=== PATIENT | male | born 1970 | race African-American/Black ===

== ENCOUNTER 2017-07-06 09:42 | Emergency (ER) | payer SELFPAY ==
[2017-07-06] MEDS ORDERED: ONDANSETRON HCL INJ/PF 4 MG/2 ML SDV IV ONE (09:56)
[2017-07-06] MEDS ORDERED: NORMAL SALINE 1000 ML 1,000 ML IV ONE (09:56)
[2017-07-06] MEDS ORDERED: MORPHINE SULFATE 10 MG/ML INJ IV ONE (09:57)
--- NOTE | 2017-07-06 09:58 | ER Document Report ---
ED Medical Screen (RME) - General Chief Complaint: Abdominal Pain Stated Complaint: STOMACH PAIN Time Seen by Provider: 07/06/17 09:56 Mode of Arrival: Ambulatory Information source: Patient Notes: pt reports severe rlq abd pain for 5 days. dec appetite. no Urinary sx's. nausea , no vomiting. no changes of stool. denies PMH. no prev surgeries. TRAVEL OUTSIDE OF THE [place] IN LAST 30 DAYS: No - Related Data Allergies/Adverse Reactions: No Known Allergies Allergy (Verified 07/06/17 09:52) Past Medical History - Social History Frequency of alcohol use: Social Drug Abuse: None - Past Medical History Cardiac Medical History: Reports: Hx Hypertension - not requiring therapy per patient Renal/ Medical History: Denies: Hx Peritoneal Dialysis Infectious Medical History: Denies: Hx MRSA - Immunizations Hx Diphtheria, Pertussis, Tetanus Vaccination: Yes - 07/2011 Physical Exam - Vital signs Vitals: Temp Pulse Resp BP Pulse Ox 98.7 F 76 18 147/105 H 100 07/06/17 09:50 07/06/17 09:50 07/06/17 09:50 07/06/17 09:50 07/06/17 09:50 Course - Vital Signs Vital signs: Temp Pulse Resp BP Pulse Ox 98.7 F 76 18 147/105 H 100 07/06/17 09:50 07/06/17 09:50 07/06/17 09:50 07/06/17 09:50 07/06/17 09:50
--- NOTE | 2017-07-06 10:11 | ER Document Report ---
ED GI/ - General Chief Complaint: Abdominal Pain Stated Complaint: STOMACH PAIN Time Seen by Provider: 07/06/17 09:56 Mode of Arrival: Ambulatory Information source: Patient TRAVEL OUTSIDE OF THE [place] IN LAST 30 DAYS: No - HPI Patient complains to provider of: Abdominal pain Onset: Last week Timing/Duration: Gradual, Persistent, Worse Quality of pain: Achy Severity at maximum: Moderate Severity in ED: Moderate Pain Level: 4 Location: RLQ Associated symptoms: Nausea Exacerbated by: Denies Relieved by: Denies Similar symptoms previously: Yes Recently seen / treated by doctor: No Notes: 07/06/17 10:09 Patient is a 46-year-old male presenting to the emergency room complaining of 6 day history of right-sided abdominal pain which is associated with nausea, denies any vomiting, no diarrhea, states he had to take a laxative on Thursday to have a bowel movement, has had one bowel movement since taking the laxative, denies any urinary symptoms, no fevers, states he has been having pain in this area for the past few years but it worsened over the past 6 days causing him to come to the emergency room to seek treatment, denies any sick contacts, no blood in his stools - Related Data Allergies/Adverse Reactions: No Known Allergies Allergy (Verified 07/06/17 09:52) Past Medical History - General Information source: Patient - Social History Smoking Status: Current Every Day Smoker Frequency of alcohol use: Social Drug Abuse: None Family History: Reviewed & Not Pertinent Patient has suicidal ideation: No Patient has homicidal ideation: No - Past Medical History Cardiac Medical History: Reports: Hx Hypertension - not requiring therapy per patient Renal/ Medical History: Denies: Hx Peritoneal Dialysis Infectious Medical History: Denies: Hx MRSA - Immunizations Hx Diphtheria, Pertussis, Tetanus Vaccination: Yes - 07/2011 Review of Systems - Review of Systems Constitutional: No symptoms reported EENT: No symptoms reported Cardiovascular: No symptoms reported Respiratory: No symptoms reported Gastrointestinal: Abdominal pain, Nausea Genitourinary: No symptoms reported Male Genitourinary: No symptoms reported Musculoskeletal: No symptoms reported Skin: No symptoms reported Hematologic/Lymphatic: No symptoms reported Neurological/Psychological: No symptoms reported -: Yes All other systems reviewed and negative Physical Exam - Vital signs Vitals: Temp Pulse Resp BP Pulse Ox 98.7 F 76 18 147/105 H 100 07/06/17 09:50 07/06/17 09:50 07/06/17 09:50 07/06/17 09:50 07/06/17 09:50 Interpretation: Normal - General General appearance: Appears well, Alert - HEENT Head: Normocephalic, Atraumatic Eyes: Normal Pupils: PERRL - Respiratory Respiratory status: No respiratory distress Chest status: Nontender Breath sounds: Normal Chest palpation: Normal - Cardiovascular Rhythm: Regular Heart sounds: Normal auscultation Murmur: No - Abdominal Inspection: Normal Distension: No distension Bowel sounds: Normal Tenderness: Tender - Right flank, no guarding, no rebound, no peritoneal signs Organomegaly: No organomegaly - Back Back: Normal, Nontender - Extremities General upper extremity: Normal inspection, Nontender, Normal color, Normal ROM , Normal temperature General lower extremity: Normal inspection, Nontender, Normal color, Normal ROM , Normal temperature, Normal weight bearing. No: Steph's sign - Neurological Neuro grossly intact: Yes Cognition: Normal Orientation: AAOx4 [place] Coma Scale Eye Opening: Spontaneous [place] Coma Scale Verbal: Oriented [place] Coma Scale Motor: Obeys Commands [place] Coma Scale Total: 15 Speech: Normal Motor strength normal: LUE, RUE, LLE, RLE Sensory: Normal - Psychological Associated symptoms: Normal affect, Normal mood - Skin Skin Temperature: Warm Skin Moisture: Dry Skin Color: Normal Course - Re-evaluation Re-evalutation: 07/06/17 12:04 Patient resting comfortably, reports relief of symptoms with medications given, lab and imaging findings discussed at bedside which are unremarkable, patient will be discharged with pain medication and instructions for follow-up, advised to return if symptoms worsen, patient acknowledges understanding with this plan - Vital Signs Vital signs: Temp Pulse Resp BP Pulse Ox 98.7 F 76 18 147/105 H 100 07/06/17 09:50 07/06/17 09:50 07/06/17 09:50 07/06/17 09:50 07/06/17 09:50 - Laboratory Result Diagrams: 07/06/17 10:35 07/06/17 10:35 Laboratory results interpreted by me: 07/06/17 07/06/17 07/06/17 10:35 10:35 10:35 RBC 6.09 H MCV 74 L MCH 23.8 L RDW 14.6 H Calcium 10.7 H AST 16 L ALT 17 L Urine Protein 30 H Urine Ketones 20 H Urine Blood MODERATE H Urine Urobilinogen 4.0 H - Diagnostic Test Radiology reviewed: Image reviewed, Reports reviewed Discharge - Discharge Clinical Impression: Abdominal pain Qualifiers: Abdominal location: right lower quadrant Qualified Code(s): R10.31 - Right lower quadrant pain Condition: Stable Disposition: HOME, SELF-CARE Instructions: Abdominal Pain ([facility]), Antinausea Medication ([facility]), Gastroenterology Additional Instructions: Follow up with your primary care provider and a fashion photographer in one to 2 days. Return to the emergency room immediately if symptoms worsen or any additional concerns. Prescriptions: Dicyclomine HCl [Bentyl 20 mg Tablet] 20 mg PO QID #60 tablet Docusate Sodium [Colace 100 mg Capsule] 100 mg PO BID #60 capsule Naproxen [Naprosyn 375 Mg Tablet] 375 mg PO BID #60 tablet
[2017-07-06 10:51] LABS: ABSOLUTE LYMPHOCYTES (AUTO) 1.7 10^3/uL (0.5-4.7); ABSOLUTE MONOCYTES (AUTO) 0.3 10^3/uL (0.1-1.4); ABSOLUTE NEUT (AUTO) 2.6 10^3/uL (1.7-8.2); BASOPHILS % (AUTO) 0.9 % (0-2); HEMOGLOBIN 14.5 g/dL (13.5-17.0); LYMPHOCYTES % (AUTO) 35.4 % (13-45); MEAN CORPUSCULAR HEMOGLOBIN 23.8 pg (27.0-33.4); MEAN CORPUSCULAR HGB CONC 32.1 g/dL (32.0-36.0); MEAN CORPUSCULAR VOLUME 74 fl (80-97); MONOCYTES % (AUTO) 7.2 % (3-13); PLATELET COUNT 270 10^3/uL (150-450); RED BLOOD COUNT 6.09 10^6/uL (4.35-5.55); RED CELL DISTRIBUTION WIDTH 14.6 % (11.5-14.0); SEGMENTED NEUTROPHILS % (AUTO) 55.5 % (42-78); TOTAL CELLS COUNTED % (AUTO) 100 %; WHITE BLOOD COUNT 4.7 10^3/uL (4.0-10.5)
[2017-07-06 11:08] LABS: APPEARANCE,URINE SLIGHTLY-CLOUDY; BILIRUBIN,URINE NEGATIVE (NEGATIVE); COLOR,URINE AMBER; GLUCOSE, URINE NEGATIVE (NEGATIVE); KETONES,URINE 20 mg/dL (NEGATIVE); LEUKOCYTE ESTERASE,URINE NEGATIVE (NEGATIVE); NITRITE,URINE NEGATIVE (NEGATIVE); PROTEIN,URINE 30 mg/dL (NEGATIVE); URINE SPECIFIC GRAVITY 1.029
[2017-07-06 11:17] LABS: ALANINE AMINOTRANSFERASE 17 U/L (21-72); ALBUMIN 4.4 g/dL (3.5-5.0); ALKALINE PHOSPHATASE 71 U/L (38-126); ANION GAP 10 (5-19); ASPARTATE AMINO TRANSFERASE 16 U/L (17-59); BILIRUBIN,DIRECT 0.4 mg/dL (0.0-0.4); BILIRUBIN,TOTAL 0.9 mg/dL (0.2-1.3); BLOOD UREA NITROGEN 12 mg/dL (7-20); CALCIUM 10.7 mg/dL (8.4-10.2); CARBON DIOXIDE 30 mmol/L (22-30); CHLORIDE 102 mmol/L (98-107); GLUCOSE 98 mg/dL (75-110); LIPASE 177.4 U/L (23-300); POTASSIUM 4.1 mmol/L (3.6-5.0); SODIUM 141.9 mmol/L (137-145); TOTAL PROTEIN 7.5 g/dL (6.3-8.2)
--- NOTE | 2017-07-06 11:48 | RADIOLOGY REPORT (SQ) ---
EXAM DESCRIPTION: CT LTD RENAL STONE PROTOCOL ON COMPLETED DATE/TIME: 07/06/2017 11:34 am REASON FOR STUDY: flank pain COMPARISON: CT abdomen pelvis 01/22/2016, 11/06/2010, 05/02/2010 TECHNIQUE: CT scan of the abdomen and pelvis performed without intravenous or oral contrast. Images reviewed with lung, soft tissue, and bone windows. Reconstructed coronal and sagittal MPR images revi ewed. All images stored on PACS. All CT scanners at this facility use dose modulation, iterative reconstruction, and/or weight based d osing when appropriate to reduce radiation dose to as low as reasonably achievable (ALARA). [facility]: Dose Right [facility]: CareDose [facility]: Dose Right [facility]: Teradose 4D [facility]: Dennoo RADIATION DOSE: CT Rad equipment meets quality standard of care and radiation dose reduction techniq ues were employed. CTDIvol: 5.2 mGy. DLP: 286 mGy-cm.mGy. LIMITATIONS: None. FINDINGS: LOWER CHEST: No significant findings. No nodules or infiltrates. NON-CONTRASTED LIVER, SPLEEN, ADRENALS: Evaluation limited by lack of IV contrast. No identified sign ificant masses. PANCREAS: No masses. No peripancreatic inflammatory changes. GALLBLADDER: No identified stones by CT criteria. No inflammatory changes to suggest cholecystitis. RIGHT KIDNEY AND URETER: No suspicious masses. Assessment limited by lack of IV contrast. No signif icant calcifications. No hydronephrosis or hydroureter. LEFT KIDNEY AND URETER: No suspicious masses. Assessment limited by lack of IV contrast. No signifi cant calcifications. No hydronephrosis or hydroureter. AORTA AND RETROPERITONEUM: No aneurysm. No retroperitoneal masses or adenopathy. BOWEL AND PERITONEAL CAVITY: No obvious masses or inflammatory changes. No free fluid. APPENDIX: Normal. PELVIS, BLADDER, AND ABDOMINAL WALL:No abnormal masses. No free fluid. Bladder normal. BONES: No significant findings. OTHER: No other significant finding. IMPRESSION: NO SIGNIFICANT OR ACUTE PROCESS IN THE ABDOMEN OR PELVIS. COMMENT: Quality ID # [id number]: Final reports with documentation of one or more dose reduction techniques (e.g., Automated exposure control, adjustment of the mA and/or kV according to patient size, use of iterative reconstruction technique) TECHNICAL DOCUMENTATION: JOB ID: [id number] [employer]- All Rights Reserved Reading location - IP/workstation name: [facility]CLUDES [email or web address]
[2017-07-06 12:27] VITALS: BP 166/108
== END 2017-07-06 12:28 | disposition home or self-care (01) ==
LOC: ER 09:42
DX: R10.31 Right lower quadrant pain (principal); R11.0 Nausea; I10 Essential (primary) hypertension; F17.200 Nicotine dependence, unspecified, uncomplicated
CPT/HCPCS: 99284; 96361; 96374; 96375; 36415; 83690; 85025; 80053; 81001; 76380; J2270; J2405; J7030

== ENCOUNTER 2017-07-10 23:16 | Emergency (ER) | payer SELFPAY ==
[2017-07-11] MEDS ORDERED: FAMOTIDINE 20 MG TABLET PO ONE (00:59)
[2017-07-11] MEDS ORDERED: MAG HYDROX/AL HYDROX/SIMETH SUSP 30 ML UDCUP PO ONE (00:59)
[2017-07-11] MEDS ORDERED: METOCLOPRAMIDE HCL ORAL SOLN 10 MG/10 ML UDCUP PO ONE (00:59)
[2017-07-11] MEDS ORDERED: LIDOCAINE 2% VISCOUS SOLN 20 ML UDCUP PO ONE (00:59)
--- NOTE | 2017-07-11 00:59 | ER Document Report ---
ED General - General Chief Complaint: Nose Bleed Stated Complaint: NOSE BLEED Time Seen by Provider: 07/11/17 00:18 Notes: Patient is a 46-year-old male without past medical history who presents with 2 distinct complaints. His first complaint is that he had intermittent bleeding from the left nostril throughout the day today. He states that prior to arrival he had a large amount of bleeding, held his head back and felt blood trickling down his throat. He then states he vomited up a coin-sized clot which prompted him to come to the emergency department. He has no history of bleeding diatheses, no prior history of nosebleeds, no use of anticoagulation. He states the bleeding did stop with direct pressure. He is uncertain of what prompted the bleeding the first place. He states that his secondary complaint is of several months of ongoing intermittent epigastric and right upper quadrant abdominal pain. He describes as a dull, throbbing, burning pain. Worsened by eating, drinking alcohol. He has not tried any to improve this pain although was seen in the emergency department several days ago and prescribed Bentyl and naproxen which she states has not all improved his symptoms. He has not seen his primary care doctor regarding these concerns. He denies any fever or constitutional symptoms. TRAVEL OUTSIDE OF THE [place] IN LAST 30 DAYS: No - Related Data Allergies/Adverse Reactions: No Known Allergies Allergy (Verified 07/06/17 09:52) Past Medical History - General Information source: Patient - Social History Smoking Status: Current Every Day Smoker Chew tobacco use (# tins/day): No Frequency of alcohol use: Occasional Drug Abuse: None Lives with: Spouse/Significant other Family History: Reviewed & Not Pertinent Patient has suicidal ideation: No Patient has homicidal ideation: No - Past Medical History Cardiac Medical History: Reports: Hx Hypertension - not requiring therapy per patient Renal/ Medical History: Denies: Hx Peritoneal Dialysis Infectious Medical History: Denies: Hx MRSA - Immunizations Hx Diphtheria, Pertussis, Tetanus Vaccination: Yes - 07/2011 Review of Systems - Review of Systems Notes: Constitutional: Negative for fever. HENT: Negative for sore throat. Eyes: Negative for visual changes. Cardiovascular: Negative for chest pain. Respiratory: Negative for shortness of breath. Gastrointestinal: Positive for abdominal pain and vomiting Genitourinary: Negative for dysuria. Musculoskeletal: Negative for back pain. Skin: Negative for rash. Neurological: Negative for headaches, weakness or numbness. 10 point ROS negative except as marked above and in HPI. Physical Exam - Vital signs Vitals: Temp Pulse Resp BP Pulse Ox 98.5 F 122 H 18 177/120 H 97 07/10/17 23:23 07/10/17 23:23 07/10/17 23:23 07/10/17 23:23 07/10/17 23:23 Interpretation: Hypertensive, Tachycardic Notes: PHYSICAL EXAMINATION: GENERAL: Well-appearing, well-nourished and in no acute distress. HEAD: Atraumatic, normocephalic. EYES: Pupils equal round and reactive to light, extraocular movements intact, sclera anicteric, conjunctiva are normal. ENT: nares patent, excoriations and areas of superficial abrasions to the middle portion of the left nasal septum, oropharynx clear without exudates. Moist mucous membranes. NECK: Normal range of motion, supple without lymphadenopathy LUNGS: Breath sounds clear to auscultation bilaterally and equal. No wheezes rales or rhonchi. HEART: Regular rate and rhythm without murmurs ABDOMEN: Soft, focal epigastric abdominal tenderness to palpation, no other localized areas of tenderness, normoactive bowel sounds. No guarding, no rebound. No masses appreciated. EXTREMITIES: Normal range of motion, no pitting or edema. No cyanosis. NEUROLOGICAL: No focal neurological deficits. Moves all extremities spontaneously and on command. PSYCH: Normal mood, normal affect. SKIN: Warm, Dry, normal turgor, no rashes or lesions noted. Course - Re-evaluation Re-evalutation: 07/11/17 00:59 Patient presents with epigastric abdominal pain with associated reflux symptoms most consistent with likely gastritis. Patient has no focal abdominal tenderness on examination. Right upper quadrant ultrasound does not demonstrate any evidence of acute cholecystitis or cholelithiasis. Lipase is normal. No LFT changes. Based on history and exam, I do not suspect ACS, pulmonary embolus, SBO, mesenteric ischemia, acute pancreatitis, biliary pathology, or an abdominal aortic dissection. Patient has had improvement of symptoms here with a GI cocktail. Patient did have a bleed from his left nostril earlier today. Nostril examination does show multiple areas of excoriations over the septum on the left side without any active bleeding. I have instructed the patient to begin moisturizing the area with Vaseline. Vitals and hemoglobin within acceptable limits. At this time will discharge with return precautions and follow-up recommendations. Verbal discharge instructions given a the bedside and opportunity for questions given. Medication warnings reviewed. Patient is in agreement with this plan and has verbalized understanding of return precautions and the need for primary care follow-up in the next 24-72 hours. - Vital Signs Vital signs: Temp Pulse Resp BP Pulse Ox 98.5 F 71 16 156/104 H 96 07/11/17 02:53 07/11/17 02:53 07/11/17 02:53 07/11/17 02:53 07/11/17 02:53 - Laboratory Result Diagrams: 07/11/17 01:15 07/11/17 01:15 Laboratory results interpreted by me: 07/11/17 07/11/17 01:15 01:15 Hgb 13.3 L MCV 74 L MCH 24.2 L RDW 14.4 H Calcium 10.6 H - Diagnostic Test Radiology reviewed: Reports reviewed Discharge - Discharge Clinical Impression: Upper abdominal pain, Nosebleed Gastritis Qualifiers: Gastritis type: unspecified gastritis Chronicity: acute Gastritis bleeding: presence of bleeding unspecified Qualified Code(s): K29.00 - Acute gastritis without bleeding Condition: Good Disposition: HOME, SELF-CARE Additional Instructions: Your symptoms appear to be most consistent with stomach or upper intestinal irritation. Please begin taking famotidine 40 mg in the morning and 40 mg at night. This medicine can be purchased directly [id number]. You may also take medicine such as Pepto-Bismol or Tums to assist with your pain. Please return to emergency department immediately if you have worsening of your pain, shortness of breath, vomiting, become unable to exert yourself due to pain or difficulty breathing, you pass out, or have any pain that radiates into your arms, jaw, or back. Please also return if you have any additional symptoms that are concerning to you. As we have discussed, the most important thing is lifestyle changes. You need to avoid smoking, sodas, tea, coffee, alcohol, spicy foods, and acidic foods such as citrus fruits, tomato based products, berries, and most fruit juices. You were seen today for a nosebleed. If this restarts please apply direct pressure to the area for 15 minutes without releasing pressure. You can use 4- 5 sprays the Afrin (oxymetazoline) spray that was given to you here in the emergency room into the affected side prior to applying the pressure. You need to apply vasaline or a similar product along the inside of the side of the nose that is bleeding twice daily to help heal the inside of your nose. Please return to emergency department if these measures do not control the bleeding. Please also return if you pass out, have significant pain of the nose or face, or any other symptoms that are concerning to you. Your primary care doctor regarding today's visit.it. Prescriptions: Famotidine 40 mg PO BID #60 tablet Sucralfate [Carafate 1 gm Tablet] 1 gm PO ACHS #120 tablet
[2017-07-11 01:32] LABS: ABSOLUTE BASOPHILS # (AUTO) 0.1 10^3/uL (0.0-0.2); ABSOLUTE LYMPHOCYTES (AUTO) 2.1 10^3/uL (0.5-4.7); ABSOLUTE MONOCYTES (AUTO) 0.4 10^3/uL (0.1-1.4); ABSOLUTE NEUT (AUTO) 3.9 10^3/uL (1.7-8.2); BASOPHILS % (AUTO) 1.1 % (0-2); EOSINOPHILS % (AUTO) 0.7 % (0-6); HEMATOCRIT 40.4 % (37.9-51.0); HEMOGLOBIN 13.3 g/dL (13.5-17.0); LYMPHOCYTES % (AUTO) 32.4 % (13-45); MEAN CORPUSCULAR HEMOGLOBIN 24.2 pg (27.0-33.4); MEAN CORPUSCULAR HGB CONC 32.9 g/dL (32.0-36.0); MEAN CORPUSCULAR VOLUME 74 fl (80-97); MONOCYTES % (AUTO) 6.7 % (3-13); PLATELET COUNT 253 10^3/uL (150-450); RED BLOOD COUNT 5.49 10^6/uL (4.35-5.55); RED CELL DISTRIBUTION WIDTH 14.4 % (11.5-14.0); SEGMENTED NEUTROPHILS % (AUTO) 59.1 % (42-78); TOTAL CELLS COUNTED % (AUTO) 100 %; WHITE BLOOD COUNT 6.6 10^3/uL (4.0-10.5)
[2017-07-11 01:41] LABS: ALANINE AMINOTRANSFERASE 26 U/L (21-72); ALBUMIN 4.5 g/dL (3.5-5.0); ALKALINE PHOSPHATASE 60 U/L (38-126); ANION GAP 12 (5-19); ASPARTATE AMINO TRANSFERASE 22 U/L (17-59); BILIRUBIN,DIRECT 0.3 mg/dL (0.0-0.4); BILIRUBIN,TOTAL 0.6 mg/dL (0.2-1.3); BLOOD UREA NITROGEN 13 mg/dL (7-20); CALCIUM 10.6 mg/dL (8.4-10.2); CARBON DIOXIDE 29 mmol/L (22-30); CHLORIDE 104 mmol/L (98-107); GLUCOSE 103 mg/dL (75-110); LIPASE 109.7 U/L (23-300); POTASSIUM 4.6 mmol/L (3.6-5.0); SODIUM 144.7 mmol/L (137-145); TOTAL PROTEIN 7.4 g/dL (6.3-8.2)
--- NOTE | 2017-07-11 02:31 | RADIOLOGY REPORT (SQ) ---
EXAM DESCRIPTION: U/S ABDOMEN LIMITED W/O DOP CLINICAL HISTORY: 46 years, Male, epigastric abdominal pain COMPARISON: CT, 07/06/2017 LIMITATIONS: None. FINDINGS: Gallbladder, negative sonographic Vences's test, liver, aorta, hepatobiliary ductal system, 0.3 cm diameter common bile duct, 10 cm right kidney, and obscured pancreas appear otherwise unremarkable. No ascites. IMPRESSION: No acute findings. Obscured pancreas.
[2017-07-11] MEDS ORDERED: OXYMETAZOLINE HCL 0.05% NASAL SPRAY 15 ML BOTTLE NASL ONE (02:39)
[2017-07-11 02:57] VITALS: BP 156/104
== END 2017-07-11 02:53 | disposition home or self-care (01) ==
LOC: ER 23:16
DX: K29.00 Acute gastritis without bleeding (principal); R04.0 Epistaxis; R10.11 Right upper quadrant pain; R11.10 Vomiting, unspecified; R10.13 Epigastric pain; F17.200 Nicotine dependence, unspecified, uncomplicated; I10 Essential (primary) hypertension
CPT/HCPCS: 99284; 36415; 83690; 85025; 80053; 76705; J3490 ×2

== ENCOUNTER 2017-12-02 08:51 | Emergency (ER) | payer OTHER ==
[2017-12-02 08:58] VITALS: BP 150/108
[2017-12-02] MEDS ORDERED: IBUPROFEN 800 MG TABLET PO ONE (09:37)
--- NOTE | 2017-12-02 09:41 | ER Document Report ---
ED Extremity Problem, Lower - General Chief Complaint: Toe Injury Stated Complaint: TOE PAIN Time Seen by Provider: 12/02/17 09:21 Mode of Arrival: Ambulatory Information source: Patient Notes: 87-year-old male presents to ED for complaint of pain to the right great toe. He states that he kicked a chair while trying to kick in and will out of the way. He states he injured his big toe when out is very painful to walk. He is alert and oriented respirations regular and unlabored the right great toe is bruised. He is able to walk. TRAVEL OUTSIDE OF THE [place] IN LAST 30 DAYS: No - HPI Patient complains to provider of: Injury, Pain, Swelling Location: Great Toe Occurred: This morning Where: Home, Indoors Onset/Duration: Sudden Quality of pain: Achy, Throbbing Severity: Severe Pain Level: 5 Context: Other - Kicked a chair Recent injury: Yes Associated symptoms: Painful ambulation Exacerbated by: Hanging down, Movement, Walking Relieved by: Elevation, Ice, Rest - Related Data Allergies/Adverse Reactions: No Known Allergies Allergy (Verified 12/02/17 08:54) Past Medical History - General Information source: Patient - Social History Smoking Status: Current Every Day Smoker Cigarette use (# per day): Yes - 2 Chew tobacco use (# tins/day): No Smoking Education Provided: Yes - 4 minutes Frequency of alcohol use: Heavy - Times a week Drug Abuse: None Occupation: [employer] Lives with: Alone Family History: Reviewed & Not Pertinent Patient has suicidal ideation: No Patient has homicidal ideation: No - Past Medical History Cardiac Medical History: Reports: Hx Hypertension - not requiring therapy per patient Pulmonary Medical History: Reports: None EENT Medical History: Reports: None Neurological Medical History: Reports: None Endocrine Medical History: Reports: None Renal/ Medical History: Reports: None Malignancy Medical History: Reports None GI Medical History: Reports: None Musculoskeletal Medical History: Reports None Skin Medical History: Reports None Psychiatric Medical History: Reports: None Traumatic Medical History: Reports: None Infectious Medical History: Reports: None Surgical Hx: Negative Past Surgical History: Reports: None - Immunizations Hx Diphtheria, Pertussis, Tetanus Vaccination: Yes - 07/2011 Review of Systems - Review of Systems Constitutional: No symptoms reported EENT: No symptoms reported Cardiovascular: No symptoms reported Respiratory: No symptoms reported Gastrointestinal: No symptoms reported Genitourinary: No symptoms reported Male Genitourinary: No symptoms reported Musculoskeletal: Other - Pain bruising swelling right great toe Skin: No symptoms reported Hematologic/Lymphatic: No symptoms reported Neurological/Psychological: No symptoms reported Physical Exam - Vital signs Vitals: Temp Pulse Resp BP Pulse Ox 98.1 F 101 H 14 150/108 H 96 12/02/17 08:57 12/02/17 08:57 12/02/17 08:57 12/02/17 08:57 12/02/17 08:57 Interpretation: Normal - General General appearance: Appears well, Alert - HEENT Head: Normocephalic, Atraumatic Eyes: Normal Pupils: PERRL - Respiratory Respiratory status: No respiratory distress Chest status: Nontender Breath sounds: Normal Chest palpation: Normal - Cardiovascular Rhythm: Regular Heart sounds: Normal auscultation Murmur: No - Abdominal Inspection: Normal Distension: No distension Bowel sounds: Normal Tenderness: Nontender Organomegaly: No organomegaly - Back Back: Normal, Nontender - Extremities General upper extremity: Normal inspection, Nontender, Normal color, Normal ROM , Normal temperature General lower extremity: Normal ROM, Normal temperature, Normal weight bearing. No: Steph's sign Foot: Tender - right great toe, Ecchymosis, Edema - Great toe, No evidence of FB. No: Abrasion, Deformity, Laceration, Metatarsal compress. pain, Nail injury , Navicular tenderness, Puncture wound, Tender 5th metatarsal - right great toe , Unable to bear weight - Neurological Neuro grossly intact: Yes Cognition: Normal Orientation: AAOx4 [place] Coma Scale Eye Opening: Spontaneous [place] Coma Scale Verbal: Oriented [place] Coma Scale Motor: Obeys Commands [place] Coma Scale Total: 15 Speech: Normal Motor strength normal: LUE, RUE, LLE, RLE Sensory: Normal - Psychological Associated symptoms: Normal affect, Normal mood - Skin Skin Temperature: Warm Skin Moisture: Dry Skin Color: Normal Course - Re-evaluation Re-evalutation: 12/02/17 10:21 Chest x-ray with patient the toe is not broken. Have contacted Ozzy White to talk with him about getting help for his elevated blood pressure. She stated she will come over and talk to him. I will discharge him home after she has talked with him. - Vital Signs Vital signs: Temp Pulse Resp BP Pulse Ox 98.1 F 101 H 14 150/108 H 96 12/02/17 08:57 12/02/17 08:57 12/02/17 08:57 12/02/17 08:57 12/02/17 08:57 - Diagnostic Test Radiology reviewed: Image reviewed, Reports reviewed Discharge - Discharge Clinical Impression: Contusion of right great toe without damage to nail Qualifiers: Encounter type: initial encounter Qualified Code(s): S90.111A - Contusion of right great toe without damage to nail, initial encounter Condition: Stable Disposition: HOME, SELF-CARE Instructions: Family Physicians / Practices Additional Instructions: CONTUSION: Your injury has resulted in a contusion -- a crushing of the deep tissues. No injury to important structures was detected during the physician's exam. Contusions vary in the amount of pain they cause, and in the length of time required for healing. Typically, the area will become bruised, and will remain painful to touch for two or three weeks. However, most patients are back to working and playing within a few days. After the initial period of rest and cold-packs, your symptoms (together with the doctor's recommendations) will determine how rapidly you can get back to full activity. Usually this means "do what feels okay, but don't do things that hurt." If re-examination was recommended, it's important to follow up as instructed. Call the doctor or return any time if pain increases, if swelling becomes severe, if you develop numbness or weakness in an injured extremity, or if any other alarming symptoms occur. USE OF TYLENOL (ACETAMINOPHEN): Acetaminophen may be taken for pain relief or fever control. It's much safer than aspirin, offering a wider range of "safe" dosages. It is safe during . Some brand names are Tylenol, Panadol, Datril, Anacin 3, Tempra, and Liquiprin. Acetaminophen can be repeated every four hours. The following are maximum recommended dosages: WEIGHT Dose Drops Elixir Chewable( 80mg) (LBS.) drprs=droppers tsp=teaspoon 6 40 mg 0.4 ml (1/2) 6-11 80 mg 0.8 ml (full) tsp 1 tab 12-16 120 mg 1 1/2 drprs 3/4 tsp 1 1/2 tabs 17-23 160 mg 2 drprs 1 tsp 2 tabs 24-30 240 mg 3 drprs 1 1/2 tsp 3 tabs 30-35 320 mg 2 tsp 4 tabs 36-41 360 mg 2 1/4 tsp 4 1/2 tabs 42-47 400 mg 2 1/2 tsp 5 tabs 48-53 480 mg 3 tsp 6 tabs 54-59 520 mg 3 1/4 tsp 6 1/2 tabs 60-64 560 mg 3 1/2 tsp 7 tabs 65-70 600 mg 3 3/4 tsp 7 1/2 tabs 71-76 640 mg 4 tsp 8 tabs 77-82 720 mg 4 1/2 tsp 9 tabs 83-88 800 mg 5 tsp 10 tabs >89 pounds or adults 650 mg to 900 mg Acetaminophen can be repeated every four hours. Maximum dose not to exceed 4000 mg a day. These maximum recommended dosages are slightly higher than the dosages written on the product container, but these dosages are very safe and below the toxic dosage for acetaminophen. ICE & ELEVATION: Apply ice packs frequently against the painful area. Many different schedules are recommended, such as "20 minutes on, 20 minutes off" or "one hour ice, two hours rest." If you need to work, you may need to go longer between ice treatments. You should plan to have the area ice packed AT LEAST one- fourth of the time. The ice should be applied over the wrap, tape, or splint, or over a layer of cloth -- not directly against the skin. Some ice bags have a built-in cloth and can be put directly on the skin. Your injured part should be elevated as much as possible over the next 48 hours. Try to keep the injury above the level of the heart. Avoid use of the injured area. Elevation and rest will decrease the swelling. USE OF VXIF-NDO-GBILLXH IBUPROFEN: Ibuprofen (Advil, Nuprin, Medipren, Motrin IB) is a medication for fever and pain control. In addition, it has anti- inflammatory effects which may be beneficial, especially in the treatment of injuries. It's best to take ibuprofen with food. Persons with ulcer disease or allergy to aspirin should notify their physician of this before taking ibuprofen. Ibuprofen can be given every four to six hours, for a total of four doses daily. Age Pain or fever dose Antiinflammatory dose 6-8 yr 200 mg (1 tab) 200 mg (1 tab) 9-11 yr 200 mg (1 tab) 200-400 mg (1-2 tab) 11-14 yr 200-400 mg (1-2 tab) 400 mg (2 tab) 15-adult 400 mg (2 tab) 600 mg (3 tab) FOLLOW-UP CARE: If you have been referred to a physician for follow-up care, call the physician s office for an appointment as you were instructed or within the next two days. If you experience worsening or a significant change in your symptoms, notify the physician immediately or return to the Emergency Department at any time for re-evaluation. Forms: Elevated Blood Pressure, Smoking Cessation Education Referrals: [facility] [Provider Group] - Follow up as needed
--- NOTE | 2017-12-02 10:00 | RADIOLOGY REPORT (SQ) ---
EXAM DESCRIPTION: FOOT RIGHT COMPLETE COMPLETED DATE/TIME: 12/02/2017 9:51 am REASON FOR STUDY: kicked chair worse pain right great toe COMPARISON: None. NUMBER OF VIEWS: Three views. TECHNIQUE: AP, lateral and oblique radiographic images acquired of the right foot. LIMITATIONS: None. FINDINGS: MINERALIZATION: Normal. BONES: No acute fracture or dislocation. No worrisome bone lesions. JOINTS: No effusions. SOFT TISSUES: No soft tissue swelling. No foreign body. OTHER: No other significant finding. IMPRESSION: NEGATIVE STUDY OF THE RIGHT FOOT. NO RADIOGRAPHIC EVIDENCE OF ACUTE INJURY. TECHNICAL DOCUMENTATION: JOB ID: [id number] [employer]- All Rights Reserved Reading location - IP/workstation name: [email or web address]
== END 2017-12-02 10:59 | disposition home or self-care (01) ==
LOC: ER 08:51
DX: S90.111A Contusion of right great toe without damage to nail, initial encounter (principal); W22.03XA Walked into furniture, initial encounter; Y93.89 Activity, other specified; Y92.009 Unspecified place in unspecified non-institutional (private) residence as the place of occurrence of the external cause; I10 Essential (primary) hypertension; F17.210 Nicotine dependence, cigarettes, uncomplicated; Z71.6 Tobacco abuse counseling
CPT/HCPCS: 99283; 99406

== ENCOUNTER 2018-02-14 15:29 | Emergency (ER) | payer OTHER ==
[2018-02-14 16:01] VITALS: BP 144/85
--- NOTE | 2018-02-14 16:28 | ER Document Report ---
ED Hand/Wrist Injury - General Chief Complaint: Hand Injury Stated Complaint: FALL/FINGER INJURY Time Seen by Provider: 02/14/18 16:17 Mode of Arrival: Ambulatory Information source: Patient Notes: Patient is a 47-year-old male comes emergency room complaint right hand pain but more specifically right ring finger pain. Patient states that 1 of his dogs which is a pit bull has a pop this about 3 months old and patient was walking towards the kitchen and stumbled over the 3-month-old and as he fell forward and he smacked his right ring finger into the table like in a fist kind of a injury. Almost like striking it with that finger. This occurred about 10 AM this morning and is been getting more sore throughout the day and he is not able to bend it all the way. He also has a hard time straightening the finger 100% 2. Denies any other medical problems. TRAVEL OUTSIDE OF THE [place] IN LAST 30 DAYS: No - HPI Injury to: Ring finger Onset: This morning Where: Home Timing: Constant, Worse Quality of pain: Fullness, Sharp, Stabbing, Throbbing Severity: Moderate Pain Level: 3 Context: Blow, Swelling - Related Data Allergies/Adverse Reactions: No Known Allergies Allergy (Verified 12/02/17 08:54) Past Medical History - General Information source: Patient - Social History Smoking Status: Current Every Day Smoker Cigarette use (# per day): Yes - 2 cigarettes/day Chew tobacco use (# tins/day): No Smoking Education Provided: Yes Frequency of alcohol use: None Drug Abuse: None Family History: Reviewed & Not Pertinent - Past Medical History Cardiac Medical History: Reports: Hx Hypertension - not requiring therapy per patient Renal/ Medical History: Denies: Hx Peritoneal Dialysis - Immunizations Hx Diphtheria, Pertussis, Tetanus Vaccination: Yes - 07/2011 Review of Systems - Review of Systems Constitutional: No symptoms reported EENT: No symptoms reported Cardiovascular: No symptoms reported Respiratory: No symptoms reported Gastrointestinal: No symptoms reported Genitourinary: No symptoms reported Male Genitourinary: No symptoms reported Musculoskeletal: See HPI, Joint pain, Joint swelling Skin: No symptoms reported Hematologic/Lymphatic: No symptoms reported Neurological/Psychological: No symptoms reported -: Yes All other systems reviewed and negative Physical Exam - Vital signs Vitals: Temp Pulse Resp BP Pulse Ox 98.6 F 80 16 144/85 H 98 02/14/18 15:47 02/14/18 15:47 02/14/18 15:47 02/14/18 15:47 02/14/18 15:47 Interpretation: Hypertensive - Notes Notes: PHYSICAL EXAMINATION: GENERAL: This is a well-nourished well-developed 47-year-old male who is in no apparent distress on physical examination. He does appear somewhat uncomfortable and holds his hand into his body as we talk. HEAD: Atraumatic, normocephalic. EYES: Pupils equal round and reactive to light, extraocular movements intact, sclera anicteric, conjunctiva are normal. ENT: Nares patent, oropharynx clear without exudates. Moist mucous membranes. NECK: Normal range of motion, supple without lymphadenopathy LUNGS: Breath sounds clear to auscultation bilaterally and equal. No wheezes rales or rhonchi. HEART: Regular rate and rhythm without murmur Musculoskeletal: Area of concern is patient's right ring finger. Patient has pain and discomfort at the base of the finger. From there it extends somewhat into the first knuckle area. Patient is unable to do full flexion of the finger but can extend it fairly good. He has good cap refill in the nailbed of the right ring finger and has good strength against resistance in the extension but not flexion. He also has good lateral movement against resistance as well. NEUROLOGICAL: Normal speech, normal gait. Normal sensory, motor exams PSYCH: Normal mood, normal affect. SKIN: Warm, Dry, normal turgor, no rashes or lesions noted. Course - Re-evaluation Re-evalutation: 02/14/18 17:28 Patient was found to have a nondisplaced fracture of the right fourth digit at the proximal end of the fourth proximal phalanx - Vital Signs Vital signs: Temp Pulse Resp BP Pulse Ox 98.6 F 80 16 144/85 H 98 02/14/18 15:47 02/14/18 15:47 02/14/18 15:47 02/14/18 15:47 02/14/18 15:47 Procedures - Immobilization Right Finger 4th digit Time completed: 17:25 Pre-Proc Neuro Vasc Exam: Normal Immobilizer type: Finger protection, Finger splint (Static) Performed by: PCT Post-Proc Neuro Vasc Exam: Normal, Unchanged from pre-exam Alignment checked and good: Yes Notes: 02/14/18 17:25 Finger splint was applied by the PCT it was checked by me because I had requested to be in anatomical curvature. She used an aluminum finger splint and made a anatomical curve with it and pull it around to get the finger protection. She did an excellent job of performing the anatomical curve and we placed him in a sling for support. Patient was checked by me after application found to have good cap refill in the nailbeds of all the fingers of the right hand. Discharge - Discharge Clinical Impression: Phalanx, proximal fracture of finger Qualifiers: Encounter type: initial encounter Finger: ring finger Fracture type: closed Fracture alignment: nondisplaced Laterality: right Qualified Code(s): S62.644A - Nondisplaced fracture of proximal phalanx of right ring finger, initial encounter for closed fracture Instructions: Fractured Finger ([facility]) Additional Instructions: Leave the splint on until you follow-up with orthopedic doctor. This is 1 of those fractures that can be fixed with either surgically or left to heal over time it just depends on what the orthopedic thinks. I am writing you for some pain medications I will give you the name of the orthopedist ammonia refrigeration technician you may contact his office to see if he can accommodate you. Ice 3 times a day. Continue to take ibuprofen 800 mg 3 times a day with food. Should you have any concerns or problems return to ER for recheck. Prescriptions: Hydrocodone/Acetaminophen [Delta 7.5-325 mg Tablet] 1 tab PO Q6 PRN #12 tablet PRN Reason: Forms: Elevated Blood Pressure Referrals: RUFINO CASTILLO MD [ACTIVE STAFF] - Follow up as needed
--- NOTE | 2018-02-14 17:04 | RADIOLOGY REPORT (SQ) ---
EXAM DESCRIPTION: HAND RIGHT 3 VIEWS COMPLETED DATE/TIME: 02/14/2018 4:54 pm REASON FOR STUDY: Tripped over a dog and hurt R hand/fingers COMPARISON: None. EXAM PARAMETERS: NUMBER OF VIEWS: Three views. TECHNIQUE: AP, lateral and oblique radiographic images acquired of the right hand. LIMITATIONS: None. FINDINGS: MINERALIZATION: Normal. BONES: Transverse nondisplaced fracture of the proximal phalanx of the 4th digit. JOINTS: No effusions. SOFT TISSUES: No soft tissue swelling. No foreign body. OTHER: No other significant finding. IMPRESSION: Transverse nondisplaced fracture proximal phalanx 4th digit. TECHNICAL DOCUMENTATION: JOB ID: [id number] [employer]- All Rights Reserved Reading location - IP/workstation name: [email or web address]
[2018-02-14] MEDS ORDERED: HYDROCODONE/ACETAMINOPHEN 5-325 MG TABLET PO ONE (17:09)
== END 2018-02-14 17:42 | disposition home or self-care (01) ==
LOC: ER 15:29
DX: S62.644A Nondisplaced fracture of proximal phalanx of right ring finger, initial encounter for closed fracture (principal); W01.190A Fall on same level from slipping, tripping and stumbling with subsequent striking against furniture, initial encounter; Y92.009 Unspecified place in unspecified non-institutional (private) residence as the place of occurrence of the external cause; F17.210 Nicotine dependence, cigarettes, uncomplicated; I10 Essential (primary) hypertension
CPT/HCPCS: 99284

== ENCOUNTER 2019-02-27 09:34 | Emergency (ER) | payer OTHER ==
[2019-02-27] MEDS ORDERED: HYDROCODONE/ACETAMINOPHEN 5-325 MG TABLET PO ONE ×2 (10:11→15:52)
--- NOTE | 2019-02-27 10:13 | ER Document Report ---
HPI - HPI Patient complains to provider of: Left hand injury Time Seen by Provider: 02/27/19 10:11 Onset: Yesterday Onset/Duration: Gradual Quality of pain: Sharp Pain Level: 3 Context: Patient states he was playing football yesterday and got tackled injuring his left hand. Patient states initially he did not have significant pain or swelling but then woke up today with the hand significantly swollen and painful. Patient is right-hand dominant. Patient states yesterday he was able to move the hand well after the initial injury but this morning he cannot move it as well due to the tenderness. Associated Symptoms: Other - Left hand injury. denies: Vomiting Exacerbated by: Movement Relieved by: Denies Similar symptoms previously: No Recently seen / treated by doctor: No - ROS ROS below otherwise negative: Yes Systems Reviewed and Negative: Yes All other systems reviewed and negative - NEURO Neurology: DENIES: Weakness - GASTROINTESTINAL Gastrointestinal: DENIES: Nausea - REPRODUCTIVE Reproductive: DENIES: : - MUSCULOSKELETAL Musculoskeletal: REPORTS: Extremity pain, Swelling - DERM Skin Color: Normal Skin Problems: None Past Medical History - General Information source: Patient - Social History Smoking Status: Current Every Day Smoker Chew tobacco use (# tins/day): No Frequency of alcohol use: None Drug Abuse: None Occupation: [employer] Family History: Reviewed & Not Pertinent Patient has suicidal ideation: No Patient has homicidal ideation: No - Medical History Medical History: Negative Renal/ Medical History: Denies: Hx Peritoneal Dialysis Surgical Hx: Negative - Immunizations Hx Diphtheria, Pertussis, Tetanus Vaccination: Yes - 07/2011 Vertical Provider Document - CONSTITUTIONAL Agree With Documented VS: Yes Exam Limitations: No Limitations General Appearance: WD/WN, No Apparent Distress - INFECTION CONTROL TRAVEL OUTSIDE OF THE [place] IN LAST 30 DAYS: No - HEENT HEENT: Atraumatic, Normocephalic - NECK Neck: Normal Inspection - RESPIRATORY Respiratory: No Respiratory Distress - CARDIOVASCULAR Pulses: Normal: Radial - MUSCULOSKELETAL/EXTREMETIES Musculoskeletal/Extremeties: Tender - Left hand tenderness to the first second and third metacarpals with 3+ edema, left wrist tenderness over distal radius, Edema. negative: Eccymosis - NEURO Level of Consciousness: Awake, Alert, Appropriate Motor/Sensory: No Sensory Deficit - DERM Integumentary: Warm, Dry, No Rash Course - Re-evaluation Re-evalutation: 02/27/19 10:55 call placed to presetter operator for consultation with Dr Patterson, message left. 02/27/19 11:45 Dr Patterson has yet to return message, call placed presetter operator again. 02/27/19 11:[address] Patterson who states that he will be here at the hospital in 30 minutes to evaluate patient. Recommends having lidocaine to the bedside with a 22-gauge needle in case he needs to perform a bedside reduction. 02/27/19 13:30 Dr. Patterson to room to evaluate patient, Nevaeh splint removed per Dr. Patterson. 02/27/19 13:46 Dr. Patterson states that he will reduce fracture and place patient in a splint. Recommends having patient return to his office in 7 to 10 days with a repeat x- ray for follow-up. 02/27/19 15:00 Dr. Patterson feels that patient will require the hand surgeon. Dr. Patterson states that he will attempt to see if 1 of his partners or if Dr. Fernandez will be able to perform the surgery. Dr. Patterson recommends having patient go through the necessary channels to get established in the hospital ijeoma care program or to seek out other insurance. Dr. Patterson states that he did mention to the patient that if he cannot get a hand specialist to perform the surgery and that if g[facility] pace is not able to see any other provider on outpatient basis that he may consider doing the surgery himself. Dr. Patterson advises having patient follow-up with him as soon as he has gotten into the ijeoma care program. Dr. Patterson would like a CT performed in anticipation of his outpatient follow-up. Dr. Patterson does not require the results be called to him. 02/27/19 15:30 Discussed with patient the plan of care. Patient given numbers for the director financial services as well as the landscape architect and planner. A consult was placed for the emergency room landscape architect and planner as well. Patient encouraged to follow-up with the landscape architect and planner tomorrow. Patient also advised that if he is unable to get any type of ijeoma care or additional insurance that he should follow-up with Dr. Patterson within the week to discuss other treatment options at that time. 02/27/19 15:55 - Vital Signs Vital signs: Temp Pulse Resp BP Pulse Ox 98 F 90 18 137/95 H 97 02/27/19 09:42 02/27/19 09:42 02/27/19 09:42 02/27/19 09:42 02/27/19 09:42 - Diagnostic Test Radiology reviewed: Image reviewed, Reports reviewed Procedures - Immobilization Left Hand Pre-Proc Neuro Vasc Exam: Normal Immobilizer type: Other - Nevaeh Performed by: PCT Post-Proc Neuro Vasc Exam: Normal Alignment checked and good: Yes Discharge - Discharge Clinical Impression: Hand fracture, left Qualifiers: Encounter type: initial encounter Fracture type: closed Qualified Code(s): S62.92XA - Unspecified fracture of left wrist and hand, initial encounter for closed fracture Condition: Stable Disposition: HOME, SELF-CARE Instructions: Fractured Metacarpal ([facility]), Ice & Elevation ([facility]), Splint Precautions ([facility]) Additional Instructions: Return immediately for any new or worsening symptoms Followup with your primary care provider, call tomorrow to make a followup appointment Follow-up with Dr. Patterson as instructed Apply for the ijeomaBuyanihan card, you will need to speak with the patient access service representative on Thursday Prescriptions: Naproxen [Naprosyn 250 Nmg Tablet] 1 tab PO BID #14 tablet Hydrocodone/Acetaminophen [Maynard 5-325 mg Tablet] 1 tab PO Q6 PRN #15 tablet PRN Reason: Referrals: ANDRES PATTERSON JR, DO [ACTIVE PROVISIONAL STAFF] - Follow up in 1 week
--- NOTE | 2019-02-27 10:38 | RADIOLOGY REPORT (SQ) ---
EXAM DESCRIPTION: HAND LEFT 3 VIEWS COMPLETED DATE/TIME: 02/27/2019 10:26 am REASON FOR STUDY: football inj, L hand/wrist pain, 1-3 [facility] COMPARISON: None. EXAM PARAMETERS: NUMBER OF VIEWS: Three views. TECHNIQUE: AP, lateral and oblique radiographic images acquired of the left hand. LIMITATIONS: None. FINDINGS: MINERALIZATION: Normal. BONES: Fracture of the distal 2nd metacarpal with volar angulation. No worrisome bone lesions. JOINTS: Degenerative changes in the PIP joint of the 5th finger. SOFT TISSUES: No soft tissue swelling. No foreign body. OTHER: No other significant finding. IMPRESSION: FRACTURE OF THE DISTAL 2ND METACARPAL WITH VOLAR ANGULATION. TECHNICAL DOCUMENTATION: JOB ID: [id number] [employer]- All Rights Reserved Reading location - IP/workstation name: [email or web address]
[2019-02-27] MEDS ORDERED: LIDOCAINE 1% INJ-PF (10 MG/ML) 30 ML SDV INJ ONE (11:56)
--- NOTE | 2019-02-27 14:07 | PDOC CONSULTATION ---
Consultation Consult Date: 02/27/19 Provider Consulted: ANDRES PATTERSON JR History of Present Illness History of Present Illness: JORDY MORENO is a 48 year old male who fell playing football yesterday and sustained left hand pain. This got worse overnight and due to the severe amount of swelling and inability to use his hand he was concerned and presented to the emergency department. He describes the pain as a aching and burning 10 out of 10 at worse 8 out of 10 at baseline. It is improved with pain medication elevation and immobility, worsened with any sort of motion as well as palpation. He denies associated injury. He denies loss of motor or sensory function to th e finger. Past Medical History Medical History: None Past Surgical History Past Surgical History: Reports: None Social History Information Source: Patient Lives with: Alone Smoking Status: Current Every Day Smoker Electronic Cigarette use?: No Family History Family History: Reviewed & Not Pertinent Parental Family History Reviewed: No Children Family History Reviewed: NA Sibling(s) Family History Reviewed.: NA Medication/Allergy Home Medications: Clonidine HCl [Catapres] 0.1 mg PO Q12 #60 tab 08/01/15 Meclizine HCl [Antivert 25 mg Tablet] 25 mg PO TID PRN #21 tablet 08/01/15 Docusate Sodium [Colace 100 mg Capsule] 100 mg PO BID #60 capsule 01/18/16 Polyethylene Glycol 3350 [Miralax Powder 17 Gm/Packet] 17 gm PO DAILY #30 powd.pack 01/18/16 Hydrocodone/Acetaminophen [Vicodin 5-300 mg Tablet] 1 tab PO ASDIR PRN #10 tab 01/22/16 Dicyclomine HCl [Bentyl 20 mg Tablet] 20 mg PO QID #60 tablet 07/06/17 Docusate Sodium [Colace 100 mg Capsule] 100 mg PO BID #60 capsule 07/06/17 Naproxen [Naprosyn 375 Mg Tablet] 375 mg PO BID #60 tablet 07/06/17 Famotidine 40 mg PO BID #60 tablet 07/11/17 Sucralfate [Carafate 1 gm Tablet] 1 gm PO ACHS #120 tablet 07/11/17 Hydrocodone/Acetaminophen [[place] 7.5-325 mg Tablet] 1 tab PO Q6 PRN #12 tablet 02/14/18 Allergies/Adverse Reactions: No Known Allergies Allergy (Verified 02/27/19 10:08) Review of Systems Review of Systems: Constitutional: ABSENT: anorexia, chills, night sweats Cardiovascular: ABSENT: chest pain Respiratory: ABSENT: dyspnea Gastrointestinal: ABSENT: vomiting Genitourinary: ABSENT: dysuria Integumentary: ABSENT: rash Neurological: ABSENT: confusion, memory loss, numbness Psychiatric: ABSENT: hallucinations Hematologic/Lymphatic: ABSENT: easy bleeding Physical Exam Vital Signs: Temp Pulse Resp BP Pulse Ox 98 F 90 18 137/95 H 97 02/27/19 09:42 02/27/19 09:42 02/27/19 09:42 02/27/19 09:42 02/27/19 09:42 Intake & Output 02/26/19 02/27/19 02/28/19 06:59 06:59 06:59 Weight 73.3 kg Physical Exam: General appearance: PRESENT: no acute distress, cooperative, well-nourished Head exam: PRESENT: atraumatic, normocephalic Eye exam: PRESENT: EOMI Ear exam: PRESENT: normal external ear exam Mouth exam: PRESENT: neck supple Neck exam: ABSENT: tracheal deviation Respiratory exam: PRESENT: symmetrical, unlabored. ABSENT: accessory muscle use, wheezes Pulses: PRESENT: normal radial pulses, normal dorsalis pedis pulse Vascular exam: PRESENT: normal capillary refill GI/Abdominal exam: ABSENT: distended, firm Extremities exam: PRESENT: full ROM of bilateral shoulders, elbows wrists, knees, hips and ankles without pain Musculoskeletal exam: PRESENT: full ROM, normal inspection of all 4 extremities aside from that noted below. Neurological exam: PRESENT: alert, awake, oriented to person, oriented to place, oriented to time Psychiatric exam: PRESENT: appropriate affect. ABSENT: agitated Focused psych exam: ABSENT: catatonic Skin exam: PRESENT: intact. ABSENT: dry All as above aside from that noted in the HPI and the following: Right upper extremity sensation grossly intact to radial median and ulnar nerve. Right upper extremity motor function grossly intact to radian median ulnar nerve AIN and PIN Pulses 2+, capillary refill less than 2 seconds No deformity noted full range of motion of the elbow shoulder wrist and fingers without pain aside from the second metacarpal phalangeal joint. There is considerable swelling deformity and loss of motion due to both swelling as well as pain. The cascade is normal. There is slight appreciable shortening of the metacarpal. Compartments soft, skin intact Results Impressions: Hand X-Ray 02/27/19 10:11 IMPRESSION: FRACTURE OF THE DISTAL 2ND METACARPAL WITH VOLAR ANGULATION. Assessment & Plan - Diagnosis (2) Hand fracture, left Qualifiers: Encounter type: initial encounter Fracture type: closed Qualified Code(s): S62.92XA - Unspecified fracture of left wrist and hand, initial encounter for closed fracture Plan: After discussing risks and benefits with the patient, informed verbal consent was obtained. The patient consented for a left second metacarpal neck closed reduction under local anesthesia. About 10 cc of 2% lidocaine was given volarly and dorsally to give a complete block from about mid metacarpal. After waiting for adequate analgesia, a reduction technique was performed utilizing the Lukasz technique. There was appreciable motion with this however the patient still sustained pain and further attempts were withheld at his request. We will be performing postreduction x-rays. -Depending upon the postreduction films, he may be able to stay in the splint and see me in the office for maintenance films or we may need to proceed with operative planning. -If films demonstrate adequate reduction he is to follow-up in my office in 7 to 10 days -He is to maintain a splint and keep it clean dry and intact until that time -If he has any acute changes he is to call my office. -Nonweightbearing left upper extremity until clearance from my office -Pain control via [id number] pain medications including Tylenol and Aleve
--- NOTE | 2019-02-27 14:41 | RADIOLOGY REPORT (SQ) ---
EXAM DESCRIPTION: HAND LEFT 3 VIEWS COMPLETED DATE/TIME: 02/27/2019 2:30 pm REASON FOR STUDY: post reduction COMPARISON: 02/27/2019. EXAM PARAMETERS: NUMBER OF VIEWS: Three views. TECHNIQUE: AP, lateral and oblique radiographic images acquired of the left hand. LIMITATIONS: None. FINDINGS: MINERALIZATION: Normal. BONES: Fracture of the distal 2nd metacarpal with volar angulation. No significant change. JOINTS: No effusions. SOFT TISSUES: Soft tissue swelling. No foreign body. OTHER: No other significant finding. IMPRESSION: NO CHANGE IN APPEARANCE OF THE FRACTURE OF THE DISTAL 2ND METACARPAL. TECHNICAL DOCUMENTATION: JOB ID: [id number] [employer]- All Rights Reserved Reading location - IP/workstation name: [email or web address]
[2019-02-27 15:39] VITALS: BP 182/112
--- NOTE | 2019-02-27 15:41 | RADIOLOGY REPORT (SQ) ---
EXAM DESCRIPTION: CT LT UPPER EXTREMITY WITHOUT COMPLETED DATE/TIME: 02/27/2019 3:21 pm REASON FOR STUDY: fracture COMPARISON: Left hand three views 02/27/2019, 1021 hours and 1127 hours TECHNIQUE: Axial imaging performed through the left hand with reformatted oblique coronal and obliqu e sagittal imaging windowed for bone and soft tissues. All CT scanners at this facility use dose modulation, iterative reconstruction, and/or weight based d osing when appropriate to reduce radiation dose to as low as reasonably achievable (ALARA). [facility]: Dose Right [facility]: CareDose [facility]: Dose Right [facility]: Teradose 4D [facility]: [employer] RADIATION DOSE: CT Rad equipment meets quality standard of care and radiation dose reduction techniq ues were employed. CTDIvol: 2.6 mGy. DLP: 43 mGy-cm. mGy. LIMITATIONS: None. FINDINGS: Left hand and wrist is immobilized in a plaster splint. An acute comminuted fracture of the distal 2nd metacarpal metaphysis is present, with mild foreshorte larissa at the fracture site and about 80 of palmar angulation of the distal fracture fragment. Fractu re lines spare the articular surface of the 2nd metacarpal head. Normal alignment at the 2nd metacar pophalangeal joint. There is dorsal hand soft tissue swelling. Old healed avulsion fragment at the dorsal aspect of the 2nd carpometacarpal joint axial image 41 and sagittal image 25. Distal radioulnar joint, radiocarpal joint, intercarpal and metacarpophalangeal joints are all otherw ise unremarkable. Metacarpophalangeal joints are intact. IMPRESSION: Acute comminuted fracture of the distal 2nd metacarpal metaphysis is present, palmar ang ulation of the distal fracture fragment. TECHNICAL DOCUMENTATION: JOB ID: [id number] Quality ID # [id number]: Final reports with documentation of one or more dose reduction techniques (e.g., Au tomated exposure control, adjustment of the mA and/or kV according to patient size, use of iterative reconstruction technique) 2010 [employer]- All Rights Reserved Reading location - IP/workstation name: [email or web address]
== END 2019-02-27 16:08 | disposition home or self-care (01) ==
LOC: ER 09:34
DX: S62.391A Other fracture of second metacarpal bone, left hand, initial encounter for closed fracture (principal); W03.XXXA Other fall on same level due to collision with another person, initial encounter; Y93.61 Activity, american tackle football; F17.200 Nicotine dependence, unspecified, uncomplicated; Z79.899 Other long term (current) drug therapy; Z79.1 Long term (current) use of non-steroidal anti-inflammatories (NSAID)
CPT/HCPCS: 99284

== ENCOUNTER 2019-03-10 12:06 | Day surgery (SDC) | payer OTHER ==
[~2019-03-10 12:06] MED LIST: ACETAMINOPHEN 325 MG TABLET PO PRN; CEFAZOLIN SODIUM 2 GM in DEXTROSE 5%-WATER 100 ML IV PRN; OXYCODONE HCL SR 10 MG TABLET PO PRN
[2019-03-10] MEDS ORDERED: FENTANYL CITRATE INJ/PF 250 MCG/5 ML AMPULE ONE (12:29)
[2019-03-10] MEDS ORDERED: MIDAZOLAM 2 MG/2 ML INJ ONE (12:29)
[2019-03-10] MEDS ORDERED: PROPOFOL INJ 200 MG/20 ML VIAL IV ONE (12:29)
[2019-03-10] MEDS ORDERED: ONDANSETRON HCL INJ/PF 4 MG/2 ML SDV ONE (12:29)
[2019-03-10] MEDS ORDERED: DEXAMETHASONE SOD PHOSPHATE INJ 4 MG/1 ML VIAL ONE (12:29)
[2019-03-10] MEDS ORDERED: OXYCODONE HCL SR 10 MG TABLET PO ONE (12:39)
[2019-03-10] MEDS ORDERED: ACETAMINOPHEN 325 MG TABLET ONE (12:39)
[2019-03-10] MEDS ORDERED: LIDOCAINE 1% INJ-PF (10 MG/ML) 30 ML SDV ONE (12:42)
[2019-03-10] MEDS ORDERED: BUPIVACAINE HCL 0.5 % INJ/PF 30 ML SDV ONE ×2 (12:42→13:20)
[2019-03-10] MEDS ORDERED: SUCCINYLCHOLINE CHLORIDE INJ 200 MG/10 ML VIAL ONE (13:13)
[2019-03-10] MEDS ORDERED: PROMETHAZINE HCL INJ 25 MG/1 ML VIAL IV PRN ×2 (13:28)
[2019-03-10] MEDS ORDERED: OXYCODONE-ACETAMINOPHEN 5-325 MG TABLET PO PRN ×2 (13:28)
[2019-03-10] MEDS ORDERED: FENTANYL CITRATE INJ/PF 100 MCG/2 ML AMPUL IV PRN ×3 (13:28)
[2019-03-10] MEDS ORDERED: MEPERIDINE HCL/PF INJ 25 MG/1 ML DISP.SYRIN IV PRN (13:28)
[2019-03-10] MEDS ORDERED: DIPHENHYDRAMINE HCL 50 MG/ML VIAL IV PRN (13:28)
[2019-03-10] MEDS ORDERED: MORPHINE SULFATE 10 MG/ML INJ IV PRN (13:28)
[2019-03-10] MEDS ORDERED: ONDANSETRON HCL INJ/PF 4 MG/2 ML SDV IV PRN (13:28)
[2019-03-10] MEDS ORDERED: FENTANYL CITRATE INJ/PF 100 MCG/2 ML AMPUL ONE (13:34)
[2019-03-10] MEDS ORDERED: HYDROMORPHONE HCL INJ/PF 2 MG/ML AMPULE ONE (14:29)
[2019-03-10] MEDS ORDERED: HYDROMORPHONE HCL INJ/PF 2 MG/ML AMPULE IV ONE (14:29)
--- NOTE | 2019-03-10 14:32 | Operative Report ---
Operative Report DATE OF SURGERY: 03/10/19 PREOPERATIVE DIAGNOSIS: Left second metacarpal neck fracture POSTOPERATIVE DIAGNOSIS: Left second metacarpal neck fracture. OPERATION: Left second metacarpal closed reduction percutaneous pinning with metacarpophalangeal arthrotomy to assist reduction SURGEON: ANDRES PATTERSON JR ANESTHESIA: GA COMPLICATIONS: None ESTIMATED BLOOD LOSS: 5 cc PROCEDURE: The patient is a 48-year-old male who presents today for a left second metacarpal neck fracture that had failed attempted closed reduction in the e [facility] department under local anesthesia. Due to difficult reduction and maintain malposition the decision was made to proceed with surgical intervention in the operating room. After evaluation in our office and preoperative planning as well is discussing risks benefits and obtaining informed consent the patient was brought to the operating room for further treatment. The patient was placed supine on the operating table. His left arm was prepped and draped in standard sterile fashion. 2 g Ancef were provided. The CT and x- rays were available for review. An appropriate timeout was performed. Following this reduction maneuver was performed and with the assistance of fluoroscopy we obtained adequate reduction. This took multiple attempts and the joint was quite difficult to completely reduce. Additionally after reduction there was a block to motion of finger flexion. Upon review under fluoroscopy it appears that the sesamoid anterior to the metacarpophalangeal joint was impin ging range of motion. The metacarpal was pinned in place with 2 x 0.45 K wires a third K wire was used to assist in reduction while optimum position of the other 2 was obtained. An incision was made to the radial aspect of the first MCP joint and and a durotomy was carefully performed while avoiding the radial digital nerve. Upon entry into the arthrotomy and osteochondral defect was apparent and this was removed. This was about 2 x 2 mm. With my Adson's I was able to push the sesamoid bone anteriorly out of the joint it was attached to soft tissue and I was unable to remove it from the joint. After doing this range of motion the finger was again obtained. We then irrigated the joint thoroughly and sewed the capsular tissue closed with 3-0 Vicryl. This was then followed with subcutaneous closure with 3-0 Vicryl followed with superficial closure with a running 3-0 Monocryl. Protection beads were placed on the ends of the cut K wires. Xeroform was placed around the K wire sites followed by fluffed 4 x 4's followed by web roll then plaster then an Daniel wrap. Patient was awakened from anesthesia and returned to the PACU in stable condition.
[2019-03-10] MEDS ORDERED: KETOROLAC TROMETHAMINE INJ/PF 30 MG/1 ML SDV ONE (14:54)
--- NOTE | 2019-03-10 14:57 | RADIOLOGY REPORT (SQ) ---
EXAM DESCRIPTION: HAND LEFT 2 VIEWS; NO CHG FLUORO COMPLETED DATE/TIME: 03/10/2019 2:30 pm REASON FOR STUDY: LEFT 2ND METACARPAL ORIF. ASSISTED WITH FLUORO IN OR S62.391A OTH FRACTURE OF SEC OND METACARPAL BONE, LEFT HAND, COMPARISON: 02/27/2019. FLUOROSCOPY TIME: 1 minutes 8 seconds. 7 images saved to PACS. TECHNIQUE: Intra-operative images acquired during surgical procedure to evaluate progress. NUMBER OF IMAGES: 7 images. LIMITATIONS: None. FINDINGS: Images of the head acquired during fixation of the metacarpal fracture. IMPRESSION: IMAGE(S) OBTAINED DURING PROCEDURE. COMMENT: Quality ID 145: Final reports for procedures using fluoroscopy that document radiation exp osure indices, or exposure time and number of fluorographic images (if radiation exposure indices are not available) Please consult full operative report of the attending physician for description of the procedure. TECHNICAL DOCUMENTATION: JOB ID: [id number] [employer]- All Rights Reserved Reading location - IP/workstation name: [email or web address]
--- NOTE | 2019-03-10 14:57 | RADIOLOGY REPORT (SQ) ---
EXAM DESCRIPTION: HAND LEFT 2 VIEWS; NO CHG FLUORO COMPLETED DATE/TIME: 03/10/2019 2:30 pm REASON FOR STUDY: LEFT 2ND METACARPAL ORIF. ASSISTED WITH FLUORO IN OR S62.391A OTH FRACTURE OF SEC OND METACARPAL BONE, LEFT HAND, COMPARISON: 02/27/2019. FLUOROSCOPY TIME: 1 minutes 8 seconds. 7 images saved to PACS. TECHNIQUE: Intra-operative images acquired during surgical procedure to evaluate progress. NUMBER OF IMAGES: 7 images. LIMITATIONS: None. FINDINGS: Images of the head acquired during fixation of the metacarpal fracture. IMPRESSION: IMAGE(S) OBTAINED DURING PROCEDURE. COMMENT: Quality ID 145: Final reports for procedures using fluoroscopy that document radiation exp osure indices, or exposure time and number of fluorographic images (if radiation exposure indices are not available) Please consult full operative report of the attending physician for description of the procedure. TECHNICAL DOCUMENTATION: JOB ID: [id number] [employer] All Rights Reserved Reading location - IP/workstation name: [email or web address]
[2019-03-10] MEDS ORDERED: OXYCODONE HCL IR 5 MG TABLET ONE (16:07)
[2019-03-10] MEDS ORDERED: HYDROCHLOROTHIAZIDE 12.5 MG TABLET PO ONE (16:15)
[2019-03-10] MEDS ORDERED: LOSARTAN POTASSIUM 50 MG TABLET PO ONE (16:15)
[2019-03-10 17:38] VITALS: BP 158/109
[2019-03-11] MEDS ORDERED: HYDROCHLOROTHIAZIDE 12.5 MG TABLET PO SCH (08:00)
[2019-03-11] MEDS ORDERED: LOSARTAN POTASSIUM 50 MG TABLET PO SCH (10:00)
== END 2019-03-10 17:25 | disposition home or self-care (01) ==
LOC: OROUT 12:06
PROVIDERS: ATTEND Orthopaedic Surgery
DX: S62.331A Displaced fracture of neck of second metacarpal bone, left hand, initial encounter for closed fracture (principal); X58.XXXA Exposure to other specified factors, initial encounter
CPT/HCPCS: 73120; 26608; 26075; C1713 ×2; J2250; J3490 ×2; J0690; J1100; J3010 ×2; J1885; J1170; J0330; J2405; J7060; J2704; 01820

== ENCOUNTER 2019-10-05 17:43 | Emergency (ER) | payer OTHER ==
[2019-10-05 17:48] VITALS: BP 171/110
--- NOTE | 2019-10-05 17:57 | ER Document Report ---
ED Medical Screen (RME) - General Chief Complaint: Abdominal Pain Stated Complaint: ABDOMINAL PAIN Time Seen by Provider: 10/05/19 17:52 Mode of Arrival: Ambulatory Information source: Patient Notes: Patient presents with right lower quadrant pain for the past 2 days that radiates to right flank area. Patient denies any fever nausea vomiting or diarrhea. Patient denies any urinary symptoms. I have greeted and performed a rapid initial assessment of this patient. A comprehensive ED assessment and evaluation of the patient, analysis of test results and completion of the medical decision making process will be conducted by additional ED providers. TRAVEL OUTSIDE OF THE [place] IN LAST 30 DAYS: No - Related Data Allergies/Adverse Reactions: No Known Allergies Allergy (Verified 10/05/19 17:50) Past Medical History - Social History Chew tobacco use (# tins/day): No Frequency of alcohol use: Social Drug Abuse: None - Past Medical History Cardiac Medical History: Reports: Hx Hypertension - BEING MONITORED Denies: Hx Coronary Artery Disease, Hx Heart Attack Pulmonary Medical History: Reports: Hx Pneumonia - 2011 Denies: Hx Asthma, Hx Bronchitis, Hx COPD Neurological Medical History: Denies: Hx Cerebrovascular Accident, Hx Seizures Renal/ Medical History: Denies: Hx Peritoneal Dialysis Musculoskeltal Medical History: Reports Hx Arthritis - JOINTS OF FINGER-UNDXG - Immunizations Hx Diphtheria, Pertussis, Tetanus Vaccination: Yes - 07/2011 Physical Exam - Vital signs Vitals: Temp Pulse Resp BP Pulse Ox 98.6 F 65 20 171/110 H 100 10/05/19 17:47 10/05/19 17:47 10/05/19 17:47 10/05/19 17:47 10/05/19 17:47 - Abdominal Tenderness: Tender - Right lower quadrant Course - Vital Signs Vital signs: Temp Pulse Resp BP Pulse Ox 98.6 F 65 20 171/110 H 100 10/05/19 17:51 10/05/19 17:47 10/05/19 17:47 10/05/19 17:47 10/05/19 17:47
[2019-10-05 18:48] LABS: ABSOLUTE EOSINOPHILS # (AUTO) 0.1 10^3/uL (0.0-0.6); ABSOLUTE MONOCYTES (AUTO) 0.5 10^3/uL (0.1-1.4); ABSOLUTE NEUT (AUTO) 3.8 10^3/uL (1.7-8.2); BASOPHILS % (AUTO) 0.6 % (0-2); EOSINOPHILS % (AUTO) 2.2 % (0-6); HEMATOCRIT 40.1 % (37.9-51.0); HEMOGLOBIN 13.1 g/dL (13.5-17.0); LYMPHOCYTES % (AUTO) 31.2 % (13-45); MEAN CORPUSCULAR HEMOGLOBIN 24.1 pg (27.0-33.4); MEAN CORPUSCULAR HGB CONC 32.7 g/dL (32.0-36.0); MEAN CORPUSCULAR VOLUME 74 fl (80-97); MONOCYTES % (AUTO) 7.6 % (3-13); PLATELET COUNT 236 10^3/uL (150-450); RED BLOOD COUNT 5.44 10^6/uL (4.35-5.55); RED CELL DISTRIBUTION WIDTH 15.5 % (11.5-14.0); SEGMENTED NEUTROPHILS % (AUTO) 58.4 % (42-78); TOTAL CELLS COUNTED % (AUTO) 100 %; WHITE BLOOD COUNT 6.4 10^3/uL (4.0-10.5)
[2019-10-05 18:52] LABS: APPEARANCE,URINE CLEAR; BILIRUBIN,URINE NEGATIVE (NEGATIVE); COLOR,URINE YELLOW; GLUCOSE, URINE NEGATIVE (NEGATIVE); KETONES,URINE NEGATIVE (NEGATIVE); LEUKOCYTE ESTERASE,URINE NEGATIVE (NEGATIVE); NITRITE,URINE NEGATIVE (NEGATIVE); PROTEIN,URINE 30 mg/dL (NEGATIVE); URINE SPECIFIC GRAVITY 1.023
[2019-10-05 19:03] LABS: ALBUMIN 4.8 g/dL (3.5-5.0); ALKALINE PHOSPHATASE 60 U/L (38-126); ANION GAP 5 (5-19); ASPARTATE AMINO TRANSFERASE 31 U/L (17-59); BILIRUBIN,TOTAL 0.9 mg/dL (0.2-1.3); BLOOD UREA NITROGEN 16 mg/dL (7-20); CALCIUM 10.6 mg/dL (8.4-10.2); CARBON DIOXIDE 29 mmol/L (22-30); CHLORIDE 103 mmol/L (98-107); GLUCOSE 89 mg/dL (75-110); POTASSIUM 4.4 mmol/L (3.6-5.0); TOTAL PROTEIN 8.3 g/dL (6.3-8.2)
--- NOTE | 2019-10-05 19:47 | ER Document Report ---
ED General - General Chief Complaint: Abdominal Pain Stated Complaint: ABDOMINAL PAIN Time Seen by Provider: 10/05/19 17:52 Mode of Arrival: Ambulatory TRAVEL OUTSIDE OF THE [place] IN LAST 30 DAYS: No - HPI Notes: Patient is a 48-year-old male who presents to the emergency department for evaluation of pain in his right lower quadrant. Is been present for 2 days. Is constant in nature. He is had pain similar in the past, he was told it was secondary to hernias. He states it was worsened by walking around, pushing on the area seems to make it better. He states his pain was worse earlier, now it seems to be significantly improved. He denies any fevers or chills. No nausea or vomiting. He is eating and drinking normally. Normal bowel movements. No urinary symptoms. He denies any scrotal swelling. - Related Data Allergies/Adverse Reactions: No Known Allergies Allergy (Verified 10/05/19 17:50) Home Medications: None Past Medical History - General Information source: Patient - Social History Smoking Status: Current Every Day Smoker Chew tobacco use (# tins/day): No Frequency of alcohol use: Social Drug Abuse: None Family History: Reviewed & Not Pertinent Patient has homicidal ideation: No - Past Medical History Cardiac Medical History: Reports: Hx Hypertension - BEING MONITORED Denies: Hx Coronary Artery Disease, Hx Heart Attack Pulmonary Medical History: Reports: Hx Pneumonia - 2011 Denies: Hx Asthma, Hx Bronchitis, Hx COPD Neurological Medical History: Denies: Hx Cerebrovascular Accident, Hx Seizures Renal/ Medical History: Denies: Hx Peritoneal Dialysis Musculoskeletal Medical History: Reports Hx Arthritis - JOINTS OF FINGER-UNDXG - Immunizations Hx Diphtheria, Pertussis, Tetanus Vaccination: Yes - 07/2011 Review of Systems - Review of Systems Gastrointestinal: See HPI Physical Exam - Vital signs Vitals: Temp Pulse Resp BP Pulse Ox 98.6 F 65 20 171/110 H 100 10/05/19 17:47 10/05/19 17:47 10/05/19 17:47 10/05/19 17:47 10/05/19 17:47 - Notes Notes: Vital signs reviewed, please refer to chart. Head is normocephalic, atraumatic. Pupils equal round, reactive to light. Neck is supple without meningismus. Heart is regular rate and rhythm. Lungs are clear to auscultation bilaterally. Abdomen is soft, nontender, normoactive bowel sounds throughout. No palpable hernias noted. Extremities without cyanosis, clubbing. Posterior calves are nontender. Peripheral pulses are equal. Skin is warm and dry. Patient is awake, alert, neurological exam is nonfocal. Course - Re-evaluation Re-evalutation: 10/05/19 19:45 Patient presents to the emergency department for evaluation. He was seen through triage. His laboratory investigations are largely unremarkable. He had a CT scan of the abdomen pelvis with IV contrast. Awaiting results. Patient's abdomen is entirely nontender. He has no constitutional symptoms. At this time he is stable, we will continue to monitor. 10/05/19 20:[address] is unremarkable. His abdomen remains entirely nontender. I suspect this may be an back to musculoskeletal. I will send him home with muscle relaxers and close follow-up. He is to return to the ED with worsening. - Vital Signs Vital signs: Temp Pulse Resp BP Pulse Ox 98.6 F 65 20 171/110 H 100 10/05/19 17:51 10/05/19 17:47 10/05/19 17:47 10/05/19 17:47 10/05/19 17:47 - Laboratory Result Diagrams: 10/05/19 18:30 10/05/19 18:30 Laboratory results interpreted by me: 10/05/19 10/05/19 10/05/19 18:25 18:30 18:30 Hgb 13.1 L MCV 74 L MCH 24.1 L RDW 15.5 H Calcium 10.6 H Total Protein 8.3 H Urine Protein 30 H Urine Blood MODERATE H Urine Urobilinogen 2.0 H Discharge - Discharge Clinical Impression: Right lower quadrant pain Condition: Stable Disposition: HOME, SELF-CARE Instructions: Abdominal Pain ([facility]) Additional Instructions: No clear cause was found for your abdominal pain today. You will be treated for musculoskeletal pain with muscle relaxers. Please take them as directed. Watch for dizziness and drowsiness with these medicines. Follow-up with your primary care provider in 24 to 48 hours. If you develop worsening or new concerning symptoms of any sort, return immediately to the emergency department for evaluation.
--- NOTE | 2019-10-05 19:49 | RADIOLOGY REPORT (SQ) ---
EXAM DESCRIPTION: CT ABD/PELVIS WITH IV ONLY IMAGES COMPLETED DATE/TIME: 10/05/2019 7:34 pm REASON FOR STUDY: RLQ pain COMPARISON: None. TECHNIQUE: CT scan of the abdomen and pelvis performed using helical scanning technique with dynamic intravenous contrast injection. No oral contrast. Images reviewed with lung, soft tissue, and bone windows. Reconstructed coronal and sagittal MPR images reviewed. Delayed images for evaluation of the urinary system also acquired. All images stored on PACS. All CT scanners at this facility use dose modulation, iterative reconstruction, and/or weight based d osing when appropriate to reduce radiation dose to as low as reasonably achievable (ALARA). [facility]: Dose Right [facility]: CareDose [facility]: Dose Right [facility]: Teradose 4D [facility]: [employer] CONTRAST TYPE AND DOSE: 89 mL Omnipaque 350- low osmolar. RENAL FUNCTION: BUN 16 creatinine 0.93 RADIATION DOSE: . LIMITATIONS: None. FINDINGS: LOWER CHEST: No significant findings. No nodules or infiltrates. LIVER: Normal size. No masses. No dilated ducts. SPLEEN: Normal size. No focal lesions. PANCREAS: No masses. No significant calcifications. No adjacent inflammation or peripancreatic fluid collections. Pancreatic duct not dilated. GALLBLADDER: No identified stones by CT criteria. No inflammatory changes to suggest cholecystitis. ADRENAL GLANDS: No significant masses or asymmetry. RIGHT KIDNEY AND URETER: No solid masses. No significant calcifications. No hydronephrosis or hyd roureter. LEFT KIDNEY AND URETER: No solid masses. No significant calcifications. No hydronephrosis or hydr oureter. AORTA AND VESSELS: No aneurysm. No dissection. Renal arteries, SMA, celiac without stenosis. RETROPERITONEUM: No retroperitoneal adenopathy, hemorrhage or masses. BOWEL AND PERITONEAL CAVITY: No masses or inflammatory changes. No free fluid or peritoneal masses. APPENDIX: Not identified. There are no pericecal inflammatory changes. PELVIS: No mass. No free fluid. Normal bladder. ABDOMINAL WALL: No masses. No hernias. BONES: No significant or acute findings. OTHER: No other significant finding. IMPRESSION: No acute finding in the abdomen or pelvis. The appendix was not able to be identified b ut no significant pericecal inflammatory changes are seen. TECHNICAL DOCUMENTATION: JOB ID: [id number] Quality ID # [id number]: Final reports with documentation of one or more dose reduction techniques (e.g., Au tomated exposure control, adjustment of the mA and/or kV according to patient size, use of iterative reconstruction technique) 2010 [employer]- All Rights Reserved Reading location - IP/workstation name: [email or web address]
[2019-10-05] MEDS ORDERED: METHOCARBAMOL 750 MG TABLET PO ONE (21:02)
== END 2019-10-05 21:09 | disposition home or self-care (01) ==
LOC: ER 17:43
DX: R10.31 Right lower quadrant pain (principal); F17.200 Nicotine dependence, unspecified, uncomplicated; I10 Essential (primary) hypertension
CPT/HCPCS: 99284; 36415; 83690; 85025; 80053; 81001; 74177; J3490